=== PATIENT | female | born 1940 | race Two or more races ===

== ENCOUNTER 2022-08-24 19:18 | Inpatient (IN) | payer OTHER ==
[~2022-08-24] VITALS: Ht 157.5 cm; Wt 53.5 kg
[2022-08-24] MEDS ORDERED: HYZAAR 100-12.1 EACH (20:05)
[2022-08-24] MEDS ORDERED: LEVOTHYROXINE25 MCG (20:05)
--- NOTE | 2022-08-24 20:05 | NUR ---
PTE ALERTA Y ORIENTADA X 3 ESFERAS EN COMPANIA DE FAMILIAR EN [place] QUIEN REFIERE DESDE EL LUNES FALTA DE AIRE,FATIGA,TOS PRODUCTIVA,SE LE REALIZA EKG Y SE NOTIFICA A DR HARPER,SE CONECTA A MONITOR CARDIACO Y OXIMETRIA.
--- NOTE | 2022-08-24 20:21 | NUR ---
PTE EVALUADO POR DR MEREDITH BRAUN [place] [facility]. SE EDUCA A PTE SOBRE EL MISMO Y REFIER ETNDNER. MR MAYTE LLEVA ACABO VENOPUNCION MANTENIENDO MEDIDAS ACAEPTICAS. COLECTA MUESTRAS Y LAS ENVIA A LABORATORIO. MS HU ADMINISTRA MEDICAMENTOS SGUN [place] Y MANTENIENDO MEDIDAS ACEPTICAS. PTE PEND A RESULTADOS DE LAB Y PEND A RESULTADOS DE IMAGENES.
== END 2022-09-01 18:02 | disposition home or self-care (01) | DRG 202 ==
LOC: ER 19:18 → MEDJ 22:33
PROVIDERS: ADMIT Internal Medicine; ATTEND Internal Medicine
PROC: BB24ZZZ Computerized Tomography (CT Scan) of Bilateral Lungs (ICD-10-PCS; principal; 2022-08-24)
PROC: 3E0F7GC Introduction of Other Therapeutic Substance into Respiratory Tract, Via Natural or Artificial Opening (ICD-10-PCS; 2022-08-25)
PROC: 4A12X4Z Monitoring of Cardiac Electrical Activity, External Approach (ICD-10-PCS; 2022-08-25)
DX: J20.9 Acute bronchitis, unspecified (principal); J45.901 Unspecified asthma with (acute) exacerbation; J06.9 Acute upper respiratory infection, unspecified; I10 Essential (primary) hypertension; E11.65 Type 2 diabetes mellitus with hyperglycemia; Z79.4 Long term (current) use of insulin; E03.8 Other specified hypothyroidism

== ENCOUNTER 2022-11-16 22:05 | Emergency (ER) | payer OTHER ==
[~2022-11-16] VITALS: Ht 157.5 cm; Wt 54.4 kg
[~2022-11-16 22:05] MED LIST: HYZAAR 100-12.1 EACH; LEVOTHYROXINE25 MCG
[2022-11-16] MEDS ORDERED: SYMBICORT 16010.2 GM IH (22:21)
[2022-11-17] MEDS ORDERED: ZYNCOF 20-400120 ML PO (02:40)
[2022-11-17] MEDS ORDERED: ZITHROMAX500 MG PO (02:41)
== END 2022-11-17 02:48 ==
LOC: ER 22:05
DX: J44.1 Chronic obstructive pulmonary disease with (acute) exacerbation (principal)

== ENCOUNTER 2023-05-05 21:46 | Emergency (ER) | payer OTHER ==
[~2023-05-05] VITALS: Ht 149.9 cm; Wt 51.7 kg
[~2023-05-05 21:46] MED LIST changes: +SYMBICORT 16010.2 GM IH; +ZITHROMAX500 MG PO; +ZYNCOF 20-400120 ML PO
[2023-05-05] MEDS ORDERED: METFORMIN HCL500 M3 (22:10)
[2023-05-06 01:55] LABS: ABG PH 7.368 (7.35-7.45); ABG PO2 68.6 mmHg (80-100); BASE EXCESS 0.1 mmol/l; BICARBONATE 25.9 mmol/l (23-25); SaO2 92.8 %; Tco2 27.3 mmol/l; allen test SATISFACTORY; o2 21 %; puncture site RADIAL RIGHT
[2023-05-06 02:43] LABS: HEMATOCRIT 41.3 % (36.0-45.00); HEMOGLOBIN 13.8 g/dL (12.0-15.00); MEAN CELL VOLUME 88.4 fL (80.00-100.00); MEAN CORPUSCULAR HEMOGLOBIN 29.5 pg (27.00-32.0); MEAN CORPUSCULAR HGB CONC 33.4 g/dl (32.0-36.0); PLATELET COUNT 410 K/uL (150-450); RED BLOOD COUNT 4.68 M/uL (4.00-6.00); RED CELL DISTRIBUTION WIDTH 14.7 % (11.5-14.5)
[2023-05-06 02:54] LABS: BILIRUBIN TOTAL 0.37 mg/dL (0.3-1.2); CALCIUM 10.3 mg/dL (8.5-10.1); CREATININE SERUM 1.03 mg/dL (0.55-1.02); GFR 51.05; GLOBULINA 3.8 G/DL (2.4-3.5); POTASSIUM 4.55 mEq/L (3.5-5.1); TOTAL PROTEIN 7.8 gm/dL (6.4-8.2)
== END 2023-05-06 10:54 | disposition home or self-care (01) ==
LOC: ER 21:47
DX: J44.1 Chronic obstructive pulmonary disease with (acute) exacerbation (principal); J45.909 Unspecified asthma, uncomplicated; I10 Essential (primary) hypertension

== ENCOUNTER 2023-05-07 22:37 | Inpatient (IN) | payer OTHER ==
[~2023-05-07] VITALS: Ht 157.5 cm; Wt 51.7 kg
[~2023-05-07 22:37] MED LIST changes: +METFORMIN HCL500 M3
[2023-05-08 01:42] LABS: HEMATOCRIT 40.6 % (36.0-45.00); HEMOGLOBIN 13.6 g/dL (12.0-15.00); MEAN CELL VOLUME 86.2 fL (80.00-100.00); MEAN CORPUSCULAR HEMOGLOBIN 28.9 pg (27.00-32.0); MEAN CORPUSCULAR HGB CONC 33.5 g/dl (32.0-36.0); PLATELET COUNT 441 K/uL (150-450); RED BLOOD COUNT 4.71 M/uL (4.00-6.00); RED CELL DISTRIBUTION WIDTH 14.9 % (11.5-14.5)
[2023-05-08 01:54] LABS: INR < 0.93; PARTIAL THROMBOPLASTIN TIME 22.8 SECONDS (22.0-34.0); PROTHROMBIN TIME 9.8 SECONDS (9.0-11.5)
[2023-05-08 01:58] LABS: BILIRUBIN TOTAL 0.29 mg/dL (0.3-1.2); CALCIUM 9.6 mg/dL (8.5-10.1); CREATININE SERUM 1.14 mg/dL (0.55-1.02); GFR 45.41; GLOBULINA 3.8 G/DL (2.4-3.5); POTASSIUM 3.91 mEq/L (3.5-5.1); TOTAL PROTEIN 7.8 gm/dL (6.4-8.2)
[2023-05-08 02:09] LABS: ABG PH 7.386 (7.35-7.45); ABG PO2 60.8 mmHg (80-100); ABG pCO2 49.4 mmHg (35-45); Tco2 30.5 mmol/l; allen test SATISFACTORY; o2 21 %; puncture site BRADIAL LEFT
[2023-05-08 02:10] LABS: SaO2 90.8 %
[2023-05-08 03:43] LABS: PH,URINE 5.5 (5.0-8.0); URINE APPEARANCE Clear; URINE BILIRRUBIN Negative (NEGATIVE); URINE BLOOD Negative; URINE COLOR Yellow; URINE GLUCOSE Negative (NEGATIVE); URINE LEUKOCYTE Moderate; URINE NITRATE Negative; URINE PROTEIN Trace (NEGATIVE); URINE UROBILINOGEN 0.2 E.U./dl
[2023-05-08 03:46] LABS: URINE BACTERIA 130.9 uL (0.0-1933); URINE EPITHELIAL CELLS 8.3 uL (0.0-38.8); URINE RBC 2.2 uL (0.0-20.8); URINE WBC 95.8 uL (0.0-23.2)
== END 2023-05-13 14:35 | disposition home or self-care (01) | DRG 192 ==
LOC: ER 22:38 → SEC-K 05-08 12:30 → MEDJ 05-08 12:30
PROVIDERS: General Practice; ADMIT Internal Medicine; ATTEND Internal Medicine
PROC: BW24ZZZ Computerized Tomography (CT Scan) of Chest and Abdomen (ICD-10-PCS; principal; 2023-05-08)
PROC: B24BZZZ Ultrasonography of Heart with Aorta (ICD-10-PCS; 2023-05-10)
DX: J44.1 Chronic obstructive pulmonary disease with (acute) exacerbation (principal); J45.909 Unspecified asthma, uncomplicated; E78.5 Hyperlipidemia, unspecified; E11.9 Type 2 diabetes mellitus without complications; Z79.4 Long term (current) use of insulin; I10 Essential (primary) hypertension; Z20.822 Contact with and (suspected) exposure to COVID-19